=== PATIENT | female | born 1995 | race African-American/Black ===

== ENCOUNTER 2016-11-20 18:35 | Emergency (ER) | payer OTHER ==
[2016-11-20] MEDS ORDERED: Ibuprofen 800 MG TAB ONE (19:25)
[2016-11-20] MEDS ORDERED: Amoxicillin/Potassium Clav 875 MG TAB ONE (19:28)
== END 2016-11-20 19:34 | disposition home or self-care (01) ==
LOC: NAV ERS 18:35
DX: J01.90 Acute sinusitis, unspecified (principal); I10 Essential (primary) hypertension; Z79.899 Other long term (current) drug therapy
CPT/HCPCS: 99283

== ENCOUNTER 2016-12-05 10:39 | Emergency (ER) | payer OTHER ==
--- NOTE | 2016-12-05 11:50 | RAD ---
FOUR VIEWS LEFT KNEE: HISTORY: Fall on left knee complaining of left knee pain. FINDINGS: AP, lateral, and both oblique views left knee obtained. The left knee is unremarkable. No evidence of a left knee fractures, subluxations, or bony lesions seen. IMPRESSION: Normal 4 views left knee. POS: [facility]
== END 2016-12-05 11:13 | disposition home or self-care (01) ==
LOC: NAV ERS 10:39
DX: S80.02XA Contusion of left knee, initial encounter (principal); I10 Essential (primary) hypertension; E66.9 Obesity, unspecified; Z79.899 Other long term (current) drug therapy; W18.30XA Fall on same level, unspecified, initial encounter

== ENCOUNTER 2016-12-20 18:20 | Emergency (ER) | payer OTHER ==
[2016-12-20 19:07] LABS: Bilirubin Negative (Negative); Blood, Urine Trace (Negative); Glucose, Urine (Dipstick) Negative (Negative); Leukocyte Moderate (Negative); Nitrite Negative (Negative); Protein, Urine (Dipstick) 30 mg/dL (Neg-Trace); Specific Gravity, Urine 1.025 (1.005-1.030)
[2016-12-20 19:09] LABS: Clarity SL HAZY (Clear)
[2016-12-20 19:10] LABS: Pregnancy Test - Urine (BHCG) NEGATIVE (NEGATIVE); Pregu Control Bar Appear? YES (CONTROL BAR); Specific Gravity 1.025 (1.002-1.036)
[2016-12-20 19:17] LABS: Bacteria/HPF 1+ HPF (None Seen); RBC/HPF 0-3 HPF (0-3); WBC/HPF 21-50 HPF (0-3)
[2016-12-22 00:58] LABS: Chlamydia by PCR Not Detected (NotDetected); GC by PCR Not Detected (NotDetected)
== END 2016-12-20 19:33 | disposition home or self-care (01) ==
LOC: NAV ERS 18:20
DX: N39.0 Urinary tract infection, site not specified (principal); I10 Essential (primary) hypertension; Z79.899 Other long term (current) drug therapy
CPT/HCPCS: 81003; 81015; 81025; 87086; 87491; 87591; 99283

== ENCOUNTER 2016-12-25 12:39 | Emergency (ER) | payer OTHER | END 2016-12-25 13:21 | disposition home or self-care (01) | LOC: NAV ERS 12:39 | DX: J06.9 Acute upper respiratory infection, unspecified (principal); I10 Essential (primary) hypertension; Z79.899 Other long term (current) drug therapy | CPT/HCPCS: 99283 ==

== ENCOUNTER 2016-12-29 11:07 | Emergency (ER) | payer OTHER | END 2016-12-29 11:42 | disposition home or self-care (01) | LOC: NAV ERS 11:07 | DX: J02.9 Acute pharyngitis, unspecified (principal); I10 Essential (primary) hypertension; Z79.899 Other long term (current) drug therapy | CPT/HCPCS: 99282 ==

== ENCOUNTER 2017-01-24 09:37 | Emergency (ER) | payer OTHER ==
[2017-01-24 10:05] LABS: Bilirubin Negative (Negative); Blood, Urine Negative (Negative); Clarity Clear (Clear); Glucose, Urine (Dipstick) Negative (Negative); Leukocyte Negative (Negative); Nitrite Negative (Negative); Protein, Urine (Dipstick) Negative (Neg-Trace); Specific Gravity, Urine 1.015 (1.005-1.030); Urobilinogen 0.2 mg/dL (0.2-1.0)
[2017-01-24 10:07] LABS: Pregnancy Test - Urine (BHCG) Negative (NEGATIVE); Pregu Control Background? CLEAR/WHITE (CLR/WHITE); Pregu Control Bar Appear? YES (CONTROL BAR); Specific Gravity 1.015 (1.002-1.036)
[2017-01-24] MEDS ORDERED: Ibuprofen 800 MG TAB ONE (10:21)
== END 2017-01-24 10:28 | disposition home or self-care (01) ==
LOC: NAV ERS 09:37
DX: R10.9 Unspecified abdominal pain (principal); K08.89 Other specified disorders of teeth and supporting structures; I10 Essential (primary) hypertension
CPT/HCPCS: 81003; 81025; 99284

== ENCOUNTER 2017-01-30 14:43 | Emergency (ER) | payer OTHER ==
[2017-01-30 15:14] LABS: Pregnancy Test - Urine (BHCG) Negative (NEGATIVE); Pregu Control Background? CLEAR/WHITE (CLR/WHITE); Pregu Control Bar Appear? YES (CONTROL BAR); Specific Gravity 1.025 (1.002-1.036)
== END 2017-01-30 15:53 | disposition home or self-care (01) ==
LOC: NAV ERS 14:43
DX: K29.70 Gastritis, unspecified, without bleeding (principal); I10 Essential (primary) hypertension
CPT/HCPCS: 81025; 99284

== ENCOUNTER 2017-02-17 10:38 | Emergency (ER) | payer OTHER ==
[2017-02-17] MEDS ORDERED: Ibuprofen 800 MG TAB ONE (11:06)
--- NOTE | 2017-02-17 11:31 | RAD ---
RIGHT FOOT THREE VIEWS: History: Right foot pain. FINDINGS: There are old healed fractures of the proximal aspects of the second, third, and fourth metatarsals. No acute fracture, dislocation, or bony destruction is seen. POS: [facility]
== END 2017-02-17 11:48 | disposition home or self-care (01) ==
LOC: NAV ERS 10:38
DX: M79.671 Pain in right foot (principal); K08.89 Other specified disorders of teeth and supporting structures; I10 Essential (primary) hypertension; E66.9 Obesity, unspecified

== ENCOUNTER 2017-02-24 10:47 | Emergency (ER) | payer OTHER | END 2017-02-24 11:45 | disposition home or self-care (01) | LOC: NAV ERS 10:47 | DX: J06.9 Acute upper respiratory infection, unspecified (principal); I10 Essential (primary) hypertension | CPT/HCPCS: 99283 ==

== ENCOUNTER 2017-03-14 01:36 | Emergency (ER) | payer OTHER ==
[2017-03-14] MEDS ORDERED: diphenhydrAMINE HCl 25 MG CAP ONE (02:00)
== END 2017-03-14 02:33 | disposition home or self-care (01) ==
LOC: NAV ERS 01:36
DX: L50.0 Allergic urticaria (principal); I10 Essential (primary) hypertension
CPT/HCPCS: 99282

== ENCOUNTER 2017-04-20 10:58 | Emergency (ER) | payer OTHER ==
[2017-04-20] MEDS ORDERED: Ibuprofen 800 MG TAB ONE (11:19)
== END 2017-04-20 11:22 | disposition home or self-care (01) ==
LOC: NAV ERS 10:58
DX: K08.89 Other specified disorders of teeth and supporting structures (principal); I10 Essential (primary) hypertension
CPT/HCPCS: 99282

== ENCOUNTER 2017-05-24 18:19 | Emergency (ER) | payer OTHER ==
[2017-05-24 18:52] LABS: Bilirubin Negative (Negative); Blood, Urine Negative (Negative); Glucose, Urine (Dipstick) Negative (Negative); Leukocyte Negative (Negative); Nitrite Negative (Negative); Protein, Urine (Dipstick) Trace mg/dL (Neg-Trace); pH, Urine 6.5 (5.0-9.0)
[2017-05-24 18:53] LABS: Clarity SL HAZY (Clear); Specific Gravity, Urine 1.031 (1.005-1.030)
[2017-05-24 18:54] LABS: Pregnancy Test - Urine (BHCG) Negative (Negative); Pregu Control Background? CLEAR/WHITE (CLR/WHITE); Pregu Control Bar Appear? YES (CONTROL BAR); Specific Gravity 1.031 (1.002-1.036)
== END 2017-05-24 19:04 | disposition home or self-care (01) ==
LOC: NAV ERS 18:19
DX: R30.0 Dysuria (principal); I10 Essential (primary) hypertension; Z87.440 Personal history of urinary (tract) infections
CPT/HCPCS: 81003; 81025; 87077; 87086; 87186; 99283

== ENCOUNTER 2017-07-13 17:18 | Emergency (ER) | payer OTHER ==
[2017-07-13] MEDS ORDERED: Ibuprofen 200 MG TAB ONE (17:38)
[2017-07-13 18:14] LABS: Bilirubin Negative (Negative); Blood, Urine Small (Negative); Clarity Slightly Cloudy (Clear); Glucose, Urine (Dipstick) Negative (Negative); Leukocyte Large (Negative); Nitrite Negative (Negative); Protein, Urine (Dipstick) 100 mg/dL (Neg-Trace); Specific Gravity, Urine 1.015 (1.005-1.030)
[2017-07-13 18:19] LABS: Pregnancy Test - Urine (BHCG) Negative (Negative); Pregu Control Background? CLEAR/WHITE (CLR/WHITE); Pregu Control Bar Appear? YES (CONTROL BAR); Specific Gravity 1.015 (1.002-1.036)
[2017-07-13 18:25] LABS: Bacteria/HPF 1+ HPF (None Seen)
[2017-07-13] MEDS ORDERED: Lidocaine 1% 20 ML MDV ONE (18:38)
[2017-07-13] MEDS ORDERED: cefTRIAXone\\ROCEPHIN 1 GM VIAL ONE (18:38)
== END 2017-07-13 18:58 | disposition home or self-care (01) ==
LOC: NAV ERS 17:18
DX: N12 Tubulo-interstitial nephritis, not specified as acute or chronic (principal); I10 Essential (primary) hypertension
CPT/HCPCS: 81003; 81015; 81025; 87086; 96372; J0696; J2001

== ENCOUNTER 2017-09-01 10:03 | Emergency (ER) | payer OTHER ==
[2017-09-01 10:40] LABS: Bilirubin Negative (Negative); Blood, Urine Negative (Negative); Clarity Clear (Clear); Glucose, Urine (Dipstick) Negative (Negative); Leukocyte Negative (Negative); Nitrite Negative (Negative); Protein, Urine (Dipstick) Negative (Neg-Trace)
[2017-09-01 10:56] LABS: ALT (SGPT) 10 U/L (8-55); AST (SGOT) 14 U/L (5-34); Albumin 3.9 g/dL (3.5-5.0); Alkaline Phosphatase 68 U/L (40-150); Anion Gap 12 mmol/L (10-20); BUN (Urea Nitrogen) 9 mg/dL (7.0-18.7); Bilirubin, Total 0.3 mg/dL (0.2-1.2); Calc. Creatinine Clearance 0 mL/min (70-130); Calcium 9.3 mg/dL (7.8-10.44); Carbon Dioxide 23 mmol/L (22-29); Chloride 106 mmol/L (98-107); Estimated GFR-MDRD Greater than 90; Globulin 3.3 g/dL (2.4-3.5); Glucose 99 mg/dL (70-105); Hemoglobin 11.5 g/dL (12.0-16.0); Mean Corpuscular HGB CONC 31.5 g/dL (32.0-36.0); Mean Corpuscular Hemoglobin 24.8 pg (27.0-31.0); Mean Corpuscular Volume 78.6 fl (81.0-99.0); Mean Platelet Volume 7.8 fL (7.4-10.4); Platelet Count 541 thou/uL (130-400); Potassium 3.7 mmol/L (3.5-5.1); Protein, Total 7.2 g/dL (6.0-8.3); RBC Distribution Width 14.7 % (11.5-14.5); Red Blood Cell (RBC) Count 4.65 mill/uL (4.20-5.40); Sodium 137 mmol/L (136-145); White Blood Cell (WBC) Count 5.6 thou/uL (4.8-10.8)
[2017-09-01 10:57] LABS: Anisocytosis SLIGHT = 6-15 cells (100X) (0-5/hpf); Band 2 % (5-11); Lymphocytes 33 % (21-51); MDiff Complete? YES; Monocytes 8 % (0-10); Neutrophil 57 % (42-75); PLT Morphology Comment Appears Increased
[2017-09-01] MEDS ORDERED: Sodium Chloride 0.9% 1,000 ML ONE (11:18)
--- NOTE | 2017-09-01 13:14 | ULT ---
ULTRASOUND OF THE PELVIS TRANSVAGINAL WITH DOPPLER: HISTORY: Abdominal pain, . FINDINGS: The uterus measures 8.9 x 4.4 x 5.7 cm. The patient's HCG level is less than 3000. The right ovary measures 2.2 x 1.4 x 1.7 cm. The left ovary measures 2 x 2.2 x 2.1 cm. Flow within both ovaries is present. No free fluid. There is a possible gestational sac measuring 0.54 cm. Possible pole is seen measuring less than 2 mm. No heart tones are seen. IMPRESSION: Possible early . Followup HCG and ultrasound is recommended. POS: [facility]
== END 2017-09-01 13:26 | disposition home or self-care (01) ==
LOC: NAV ERS 10:03
DX: O99.89 Other specified diseases and conditions complicating pregnancy, childbirth and the puerperium (principal); R10.30 Lower abdominal pain, unspecified; O16.1 Unspecified maternal hypertension, first trimester; Z3A.01 Less than 8 weeks gestation of pregnancy
CPT/HCPCS: 36415; 76856; 80053; 81003; 84702; 85025; 87086; 96360; J7050

== ENCOUNTER 2017-11-20 18:34 | Emergency (ER) | payer OTHER | END 2017-11-20 19:10 | disposition home or self-care (01) | LOC: NAV ERS 18:34 | DX: O9A.212 Injury, poisoning and certain other consequences of external causes complicating pregnancy, second trimester (principal); S29.011A Strain of muscle and tendon of front wall of thorax, initial encounter; O10.912 Unspecified pre-existing hypertension complicating pregnancy, second trimester; O99.212 Obesity complicating pregnancy, second trimester; E66.9 Obesity, unspecified; X50.1XXA Overexertion from prolonged static or awkward postures, initial encounter | CPT/HCPCS: 99283 ==

== ENCOUNTER 2017-11-22 13:27 | Emergency (ER) | payer OTHER ==
[2017-11-22] MEDS ORDERED: Fluorescein Opthalmic Strip ONE (14:20)
== END 2017-11-22 14:48 | disposition home or self-care (01) ==
LOC: NAV ERS 13:27
DX: H10.9 Unspecified conjunctivitis (principal); I10 Essential (primary) hypertension
CPT/HCPCS: 99282

== ENCOUNTER 2018-07-07 17:39 | Emergency (ER) | payer OTHER | END 2018-07-07 18:43 | disposition home or self-care (01) | LOC: NAV ERS 17:39 | DX: H65.91 Unspecified nonsuppurative otitis media, right ear (principal); J06.9 Acute upper respiratory infection, unspecified; I10 Essential (primary) hypertension | CPT/HCPCS: 99281 ==

== ENCOUNTER 2018-10-15 09:53 | Emergency (ER) | payer OTHER | END 2018-10-15 10:29 | disposition home or self-care (01) | LOC: NAV ERS 09:53 | DX: K08.89 Other specified disorders of teeth and supporting structures (principal); I10 Essential (primary) hypertension | CPT/HCPCS: 99281 ==

== ENCOUNTER 2019-03-15 13:56 | Emergency (ER) | payer MEDICAID, OTHER ==
[2019-03-15] MEDS ORDERED: Lidocaine Viscous Sol 2% 15 ml UD Cup ONE (14:18)
[2019-03-15] MEDS ORDERED: Ondansetron ODT 4 MG TAB ONE (14:18)
[2019-03-15] MEDS ORDERED: Famotidine 20 MG TAB ONE (14:18)
[2019-03-15] MEDS ORDERED: Mag-Al Plus 1200 MG/1200 MG/120 MG/30 ML UDCUP ONE (14:18)
[2019-03-15 14:28] LABS: Bilirubin Negative (Negative); Blood, Urine Negative (Negative); Glucose, Urine (Dipstick) Negative (Negative); Leukocyte Negative (Negative); Nitrite Negative (Negative); Protein, Urine (Dipstick) Negative (Neg-Trace)
[2019-03-15 14:29] LABS: Clarity SL HAZY (Clear)
[2019-03-15 15:20] LABS: #Basophils 0.1 thou/uL (0.0-0.2); #Lymphocytes 1.2 thou/uL (1.20-3.40); #Monocytes 0.3 thou/uL (0.11-0.59); #Neutrophils 6.1 thou/uL (1.40-6.50); %Eosinophils 0.6 % (0.0-10.0); %Lymphocytes 15.5 % (21.0-51.0); %Monocytes 4.4 % (0.0-10.0); %Neutrophils 78.6 % (42.0-75.0); Hemoglobin 11.4 g/dL (12.0-16.0); Mean Corpuscular HGB CONC 30.3 g/dL (32.0-36.0); Mean Corpuscular Hemoglobin 22.9 pg (27.0-31.0); Mean Corpuscular Volume 75.4 fL (78.0-98.0); Mean Platelet Volume 7.1 fL (7.4-10.4); Platelet Count 464 thou/uL (130-400); RBC Distribution Width 14.8 % (11.5-14.5); Red Blood Cell (RBC) Count 4.99 mill/uL (4.20-5.40); White Blood Cell (WBC) Count 7.7 thou/uL (4.8-10.8)
[2019-03-15 15:21] LABS: BHCG - Serum Negative (NEGATIVE); Pregs Control Bar Appear? YES (CONTROL BAR)
[2019-03-15 15:24] LABS: ALT (SGPT) 6 U/L (8-55); AST (SGOT) 12 U/L (5-34); Albumin 3.8 g/dL (3.5-5.0); Alkaline Phosphatase 69 U/L (40-150); Anion Gap 13 mmol/L (10-20); BUN (Urea Nitrogen) 12 mg/dL (7.0-18.7); Bilirubin, Total 0.3 mg/dL (0.2-1.2); Calc. Creatinine Clearance 0 mL/min (70-130); Calcium 9.4 mg/dL (7.8-10.44); Carbon Dioxide 21 mmol/L (22-29); Chloride 107 mmol/L (98-107); Estimated GFR-MDRD Greater than 90; Globulin 3.4 g/dL (2.4-3.5); Glucose 112 mg/dL (70-105); Lipase 26 U/L (8-78); Potassium 3.9 mmol/L (3.5-5.1); Protein, Total 7.2 g/dL (6.0-8.3); Sodium 137 mmol/L (136-145)
== END 2019-03-15 15:40 | disposition home or self-care (01) ==
LOC: NAV ERS 13:56
DX: K21.9 Gastro-esophageal reflux disease without esophagitis (principal); R11.2 Nausea with vomiting, unspecified; R10.9 Unspecified abdominal pain; I10 Essential (primary) hypertension
CPT/HCPCS: 80053; 81003; 83605; 83690; 84703; 85025; 99283; Q0162

== ENCOUNTER 2019-06-25 13:55 | Emergency (ER) | payer OTHER ==
[2019-06-25 14:28] LABS: Bilirubin Negative (Negative); Blood, Urine Trace (Negative); Clarity Clear (Clear); Glucose, Urine (Dipstick) Negative (Negative); Leukocyte Small (Negative); Nitrite Negative (Negative); Protein, Urine (Dipstick) 30 mg/dL (Neg-Trace)
[2019-06-25 14:34] LABS: Pregnancy Test - Urine (BHCG) Negative (Negative)
[2019-06-25 14:35] LABS: Pregu Control Background? CLEAR/WHITE (CLR/WHITE); Pregu Control Bar Appear? YES (CONTROL BAR)
[2019-06-25 14:36] LABS: Bacteria/HPF 1+ HPF (None Seen); RBC/HPF None Seen HPF (0-3); Squamous Epithelial 0-3 HPF (0-3); WBC/HPF 21-50 HPF (0-3)
== END 2019-06-25 15:15 | disposition home or self-care (01) ==
LOC: NAV ERS 13:55
DX: N30.00 Acute cystitis without hematuria (principal); I10 Essential (primary) hypertension
CPT/HCPCS: 81003; 81015; 81025; 99283

== ENCOUNTER 2019-08-01 20:06 | Emergency (ER) | payer OTHER ==
[2019-08-01] MEDS ORDERED: Bacitracin 1 PK ONE (20:09)
== END 2019-08-01 20:27 | disposition home or self-care (01) ==
LOC: NAV ERS 20:06
DX: S30.811A Abrasion of abdominal wall, initial encounter (principal); I10 Essential (primary) hypertension; W34.00XA Accidental discharge from unspecified firearms or gun, initial encounter
CPT/HCPCS: 99283

== ENCOUNTER → 2019-11-06 | Emergency (ER) | payer OTHER ==
[2019-11-06 22:18] LABS: Bilirubin Small (Negative); Blood, Urine Moderate (Negative); Clarity Clear (Clear); Glucose, Urine (Dipstick) Negative (Negative); Leukocyte Moderate (Negative); Nitrite Negative (Negative); Protein, Urine (Dipstick) 30 mg/dL (Neg-Trace); Urobilinogen > or = 8.0 mg/dL (Less than 2)
[2019-11-06 22:19] LABS: Pregnancy Test - Urine (BHCG) POSITIVE (Negative); Pregu Control Background? CLEAR/WHITE (CLR/WHITE); Pregu Control Bar Appear? YES (CONTROL BAR); Specific Gravity 1.025 (1.002-1.036)
[2019-11-06 22:29] LABS: Bacteria/HPF 3+ HPF (None Seen); RBC/HPF Greater than 50 HPF (0-3); Squamous Epithelial Greater than 50 HPF (0-3); WBC/HPF Greater Than 50 HPF (0-3)
== END ==
LOC: NAV ERS 21:41
DX: N39.0 Urinary tract infection, site not specified (principal); Z33.1 Pregnant state, incidental; I10 Essential (primary) hypertension
CPT/HCPCS: 81003; 81015; 81025; 99283

== ENCOUNTER 2022-08-16 12:15 | Emergency (ER) | payer OTHER ==
[2022-08-16] MEDS ORDERED: hydrOXYzine 25 MG TAB ONE (12:44)
[2022-08-16 13:24] LABS: Amphetamine Not Detected (NotDetected); Barbiturates Screen Not Detected (NotDetected); Benzodiazepine Screen Not Detected (NotDetected); Cocaine Metabolite Screen Not Detected (NotDetected); Medtox Control Line Valid? VALID (VALID); Methadone Not Detected (NotDetected); Methamphetamine Not Detected (NotDetected); Opiate Screen Not Detected (NotDetected); Oxycodone Screen Not Detected (NotDetected); Phencyclidine (PCP) Not Detected (NotDetected); THC/Cannabinoid Screen Not Detected (NotDetected); Tricyclic Screen Not Detected (NotDetected)
== END 2022-08-16 13:52 | disposition home or self-care (01) ==
LOC: NAV ERS 12:15
DX: J01.10 Acute frontal sinusitis, unspecified (principal); F41.1 Generalized anxiety disorder; B34.9 Viral infection, unspecified
CPT/HCPCS: 80306; 87804; 93005

== ENCOUNTER 2022-12-12 09:05 | Emergency (ER) | payer OTHER ==
[2022-12-12 09:35] LABS: Bilirubin Negative (Negative); Blood, Urine Large (Negative); Glucose, Urine (Dipstick) Negative (Negative); Ketone, Urine Negative (Negative); Leukocyte Large (Negative); Nitrite Negative (Negative); Protein, Urine (Dipstick) 100 mg/dL (Neg-Trace); Urobilinogen 0.2 mg/dL (Less than 2)
[2022-12-12 09:42] LABS: Clarity Cloudy (Clear)
[2022-12-12 09:43] LABS: Specific Gravity, Urine 1.017 (1.002-1.036)
[2022-12-12 09:44] LABS: Bacteria/HPF Rare-Few HPF (None Seen); Squamous Epithelial 0-3 HPF (0-3); WBC/HPF Greater Than 50 HPF (0-3)
[2022-12-12 09:45] LABS: Pregnancy Test - Urine (BHCG) Negative (Negative)
[2022-12-12 09:46] LABS: Pregu Control Background? CLEAR/WHITE (CLR/WHITE); Pregu Control Bar Appear? YES (CONTROL BAR); Specific Gravity 1.017 (1.002-1.036)
[2022-12-12] MEDS ORDERED: Cephalexin 250 MG CAP ONE (10:13)
== END 2022-12-12 10:20 | disposition home or self-care (01) ==
LOC: NAV ERS 09:05
DX: N30.00 Acute cystitis without hematuria (principal)
CPT/HCPCS: 81003; 81015; 81025; 87077; 87086; 87186; 99283

== ENCOUNTER 2023-04-11 17:23 | Emergency (ER) | payer OTHER ==
[2023-04-11 17:38] LABS: Specific Gravity 1.025 (1.002-1.036)
[2023-04-11 17:39] LABS: Pregu Control Background? CLEAR/WHITE (CLR/WHITE); Pregu Control Bar Appear? YES (CONTROL BAR)
[2023-04-11 17:43] LABS: Pregnancy Test - Urine (BHCG) POSITIVE (Negative)
[2023-04-11 17:51] LABS: Bilirubin Small (Negative); Blood, Urine Large (Negative); CAUTI Indications for Culture Dysuria,urgency,freq; Clarity Cloudy (Clear); Glucose, Urine (Dipstick) Negative (Negative); Ketone, Urine Negative (Negative); Leukocyte Small (Negative); Nitrite Negative (Negative); Protein, Urine (Dipstick) 30 mg/dL (Neg-Trace); Specific Gravity, Urine 1.025 (1.005-1.030); pH, Urine 6.5 (5.0-9.0)
[2023-04-11 17:53] LABS: Bacteria/HPF Rare-Few HPF (None Seen); RBC/HPF Greater than 50 HPF (0-3); Trichomonas/HPF Rare HPF (None Seen)
[2023-04-11 17:55] LABS: Urine Culture Reflex No No
[2023-04-11 18:15] LABS: #Basophils 0.1 thou/uL (0.0-0.2); #Eosinphils 0.2 thou/uL (0.0-0.7); #Lymphocytes 1.6 thou/uL (1.20-3.40); #Monocytes 0.4 thou/uL (0.11-0.59); #Neutrophils 3.6 thou/uL (1.40-6.50); %Basophils 0.9 % (0.0-1.0); %Eosinophils 3.7 % (0.0-10.0); %Lymphocytes 27.6 % (21.0-51.0); %Monocytes 6.3 % (0.0-10.0); %Neutrophils 61.4 % (42.0-75.0); Hematocrit 37.9 % (36.0-47.0); Hemoglobin 11.5 g/dL (12.0-16.0); Mean Corpuscular HGB CONC 30.3 g/dL (32.0-36.0); Mean Corpuscular Hemoglobin 23.5 pg (27.0-31.0); Mean Corpuscular Volume 77.7 fl (78.0-98.0); Platelet Count 437 10x3/uL (130-400); RBC Distribution Width 14.4 % (11.5-14.5); Red Blood Cell (RBC) Count 4.88 mill/uL (4.20-5.40); White Blood Cell (WBC) Count 5.9 10x3/uL (4.8-10.8)
[2023-04-11 18:27] LABS: ALT (SGPT) 9 U/L (8-55); AST (SGOT) 13 U/L (5-34); Albumin 3.9 g/dL (3.5-5.0); Alkaline Phosphatase 69 U/L (40-110); Anion Gap 13 mmol/L (10-20); BUN (Urea Nitrogen) 13 mg/dL (7.0-18.7); Bilirubin, Total 0.3 mg/dL (0.2-1.2); Calc. Creatinine Clearance 0 mL/min (70-130); Calcium 9.4 mg/dL (7.8-10.44); Carbon Dioxide 23 mmol/L (22-29); Chloride 108 mmol/L (98-107); Estimated GFR 98; Globulin 3.7 g/dL (2.4-3.5); Glucose 98 mg/dL (70-105); Potassium 3.6 mmol/L (3.5-5.1); Protein, Total 7.6 g/dL (6.0-8.3); Sodium 140 mmol/L (136-145)
[2023-04-11] MEDS ORDERED: AMOXicillin 250 MG CAP ONE ×2 (18:43→19:02)
[2023-04-11] MEDS ORDERED: metroNIDAZOLE 500 MG TAB ONE (18:43)
[2023-04-12 22:12] LABS: Chlam.trachomatis by PCR,Urine Not Detected (NotDetected); GC N.gonorrhoeae PCR,UrineVOID Not Detected (NotDetected)
== END 2023-04-11 18:57 | disposition home or self-care (01) ==
LOC: NAV ERS 17:23
DX: O20.0 Threatened abortion (principal); O99.011 Anemia complicating pregnancy, first trimester; A59.9 Trichomoniasis, unspecified; O99.891 Other specified diseases and conditions complicating pregnancy; H66.92 Otitis media, unspecified, left ear; Z3A.01 Less than 8 weeks gestation of pregnancy
CPT/HCPCS: 36415; 80053; 81001; 81025; 84702; 85025; 87491; 87591; 99284

== ENCOUNTER 2025-08-07 13:21 | Emergency (ER) | payer OTHER ==
[2025-08-07 14:29] LABS: Glucose, Urine (Dipstick) Negative (Negative); Leukocyte Small (Negative); Protein, Urine (Dipstick) 100 mg/dL (Neg-Trace); Specific Gravity, Urine 1.025 (1.005-1.030)
[2025-08-07 14:40] LABS: Bacteria/HPF 2+ HPF (None Seen); CAUTI Indications for Culture Dysuria,urgency,freq; RBC/HPF Greater than 50 HPF (0-3); WBC/HPF 21-50 HPF (0-3)
[2025-08-07 14:41] LABS: Urine Culture Reflex Yes Yes
[2025-08-07 14:43] LABS: Pregnancy Test - Urine (BHCG) Negative (Negative); Pregu Control Background? CLEAR/WHITE (CLR/WHITE); Pregu Control Bar Appear? YES (CONTROL BAR)
[2025-08-08 13:52] LABS: Chlam.trachomatis by PCR,Urine Not Detected (NotDetected); GC N.gonorrhoeae PCR,UrineVOID Not Detected (NotDetected)
== END 2025-08-07 15:03 | disposition home or self-care (01) ==
LOC: NAV ERS 13:21
DX: N30.00 Acute cystitis without hematuria (principal)
CPT/HCPCS: 81001; 81025; 87077; 87086; 87186; 87491; 87591; 99283